=== PATIENT | male | born 1940 ===

== ENCOUNTER 2016-07-22 04:50 | Emergency (ER) | payer MEDICARE, MEDICAID ==
[2016-07-22 04:59] VITALS: PULSE 90; RESP 18; TEMP 97.9; O2SAT 97
--- NOTE | 2016-07-22 05:19 | ED PDOC ---
HPI: Abdomen Time Seen by Provider: 07/22/16 05:03 Chief Complaint (Nursing): Abdominal Pain Chief Complaint (Provider): left sided abdominal pain, flank pain, testicular pain History Per: Patient History/Exam Limitations: no limitations Onset/Duration Of Symptoms: Hrs (2) Outside of [place] travel?: No Current Symptoms Are (Timing): Still Present Pain Scale Rating Of: 10 Quality Of Discomfort: Sharp Associated Symptoms: Nausea Additional Complaint(s): 76yo male with PMHx including CAD, HTN, dyslipidemia, coronary stents presents to the ED with c/o acute onset left sided abdominal pain radiating to left flank and left testicle x 2 hours. Patient reports pain is 10/10, sharp, and constant. States he feels nauseated but denies vomiting. Pain awoke patient from sleep. Denies chest pain, cough, SOB, diarrhea, fever. Past Medical History Reviewed: Historical Data, Nursing Documentation, Vital Signs Vital Signs: Last Vital Signs Temp 97.9 F 07/22/16 04:56 Pulse 90 07/22/16 04:56 Resp 18 07/22/16 04:56 BP 173/94 H 07/22/16 04:56 Pulse Ox 97 07/22/16 06:28 - Medical History PMH: CAD, HTN Other PMH: dyslipidemia - Surgical History Surgical History: Coronary Stent - Family History Family History: States: No Known Family Hx - Social History Current smoker - smoking cessation education provided: No Alcohol: Occasional Drugs: Denies - Home Medications Home Medications: Ambulatory Orders Medication Instructions Recorded Tamsulosin [Flomax] 0.4 mg PO DAILY #10 cap 07/22/16 traMADol [Ultram] 50 mg PO Q6 PRN #12 tab 07/22/16 - Allergies Allergies/Adverse Reactions: Allergies Allergy/AdvReac Type Severity Reaction Status Date / Time No Known Allergies Allergy Verified 07/22/16 04:56 Review of Systems ROS Statement: Except As Marked, All Systems Reviewed And Found Negative Constitutional: Negative for: Fever Cardiovascular: Negative for: Chest Pain Respiratory: Negative for: Cough, Shortness of Breath Gastrointestinal: Positive for: Nausea, Abdominal Pain (left sided ). Negative for: Vomiting, Diarrhea Genitourinary Male: Positive for: Other (left testicle pain ) Musculoskeletal: Positive for: Back Pain (left flank ) Physical Exam - Reviewed Nursing Documentation Reviewed: Yes Vital Signs Reviewed: Yes - Physical Exam Appears: Positive for: Well, No Acute Distress, Uncomfortable Head Exam: Positive for: ATRAUMATIC, NORMAL INSPECTION, NORMOCEPHALIC Skin: Positive for: Normal Color, Warm, Dry Eye Exam: Positive for: Normal appearance, EOMI, PERRL ENT: Positive for: Normal ENT Inspection Neck: Positive for: Normal, Painless ROM, Supple Cardiovascular/Chest: Positive for: Regular Rate, Rhythm. Negative for: Murmur , Tachycardia Respiratory: Positive for: Normal Breath Sounds. Negative for: Wheezing, Respiratory Distress Gastrointestinal/Abdominal: Positive for: Normal Exam, Soft. Negative for: Tenderness Back: Positive for: Normal Inspection. Negative for: L CVA Tenderness, R CVA Tenderness Extremity: Positive for: Normal ROM. Negative for: Deformity, Swelling Neurologic/Psych: Positive for: Alert, Oriented. Negative for: Motor/Sensory Deficits - Laboratory Results Result Diagrams: 07/22/16 05:15 07/22/16 05:15 - ECG O2 Sat by Pulse Oximetry: 97 Pulse Ox Interpretation: Normal (RA) Medical Decision Making Medical Decision Makin: Impression: 76yo male w/ acute flank pain Plan: CT A/P Labs EKG Toradol 10mg IV, Zofran 4mg IV, IVF reassess 0622: CT A/P impression: - Mild left hydroureteronephrosis, with no causative obstructing stone identified. Findings could be due to a recently passed stone. A left sided urinary tract infection could also have this appearance. Recommend clinical correlation. - Otherwise, no evidence of significant acute process on this unenhanced exam. 0630: Patient reports resolution in symptoms and is stable for d/c. Dx: ureteral calculus, renal colic Rx: flomax, ultram Improved Patient referred to urology Scribe Attestation: Documented by Melissa Valero acting as a scribe for Nasir Martinez MD. Provider Scribe Attestation: All medical record entries made by the Scribe were at my direction and personally dictated by me. I have reviewed the chart and agree that the record accurately reflects my personal performance of the history, physical exam, medical decision making, and the department course for this patient. I have also personally directed, reviewed, and agree with the discharge instructions and disposition. Disposition - Clinical Impression Clinical Impression: Ureteral calculus, Renal colic - Patient ED Disposition Is Patient to be Admitted: No Counseled Patient/Family Regarding: Studies Performed, Diagnosis, Need For Followup, Rx Given - Disposition Referrals: Marly Caruso MD [Medical Doctor] - Disposition: Routine/Home Disposition Time: 06:30 Condition: IMPROVED Prescriptions: Tamsulosin [Flomax] 0.4 mg PO DAILY #10 cap traMADol [Ultram] 50 mg PO Q6 PRN #12 tab PRN Reason: flank/abd pain Instructions: Ureteral Stones (ED) Print Language: NORWEGIAN
[2016-07-22 05:23] LABS: BASO # 0.1 K/uL (0.0-0.2); BASO % 1.1 % (0.0-2.0); EOS # 0.3 K/uL (0.0-0.7); EOS % 4.5 % (0.0-4.0); HEMATOCRIT 44.2 % (35.0-51.0); LYMPH # 1.6 K/uL (1.0-4.3); LYMPH % 27.4 % (20.0-40.0); MEAN CELL VOLUME 90.4 fl (80.0-94.0); MEAN CORPUSCULAR HEMOGLOBIN 31.5 pg (27.0-31.0); MEAN CORPUSCULAR HGB CONC 34.8 g/dL (33.0-37.0); MEAN PLATELET VOLUME 8.3 fl (7.2-11.7); MONO # 0.3 K/uL (0.0-0.8); MONO % 5.7 % (0.0-10.0); NEUT # 3.5 K/uL (1.8-7.0); NEUT % 61.3 % (50.0-75.0); NRBC % 0.1 % (0.0-0.0); RED CELL DISTRIBUTION WIDTH 13.4 % (11.5-14.5); WHITE BLOOD COUNT 5.8 K/uL (4.8-10.8)
[2016-07-22 05:32] LABS: ALB/GLOB RATIO 1.6 (1.0-2.1); ALKALINE PHOSPHATASE 64 U/L (38-126); ALT/SGPT 35 U/L (21-72); AST/SGOT 33 U/L (17-59); BILIRUBIN,TOTAL 0.8 mg/dl (0.2-1.3); BLOOD UREA NITROGEN 22 mg/dl (9-20); CALCIUM 9.8 mg/dL (8.4-10.2); CARBON DIOXIDE 26 mmol/L (22-30); CHLORIDE 107 mmol/L (98-107); GFR AFRICAN-AMERICAN > 60; GLUCOSE,RANDOM 142 mg/dL (75-110); POTASSIUM 3.4 MMOL/L (3.6-5.0); SODIUM 145 mmol/l (132-148); TOTAL PROTEIN 7.3 G/DL (6.3-8.2)
--- NOTE | 2016-07-22 06:22 | CT ---
EXAM: CT Abdomen and Pelvis Without Intravenous Contrast CLINICAL HISTORY: 76 years old, male; Pain; Abdominal pain; Generalized; Additional info: Renal colic TECHNIQUE: Axial computed tomography images of the abdomen and pelvis without intravenous contrast. This CT exam was performed using one or more of the following dose reduction techniques: automated exposure control, adjustment of the mA and/or kV according to patient size, and/or use of iterative reconstruction technique. Coronal and sagittal reformatted images were created and reviewed. EXAM DATE/TIME: 07/22/2016 5:07 AM COMPARISON: No relevant prior studies available. FINDINGS: LOWER THORAX: No infiltrate seen in the lung bases. ABDOMEN: LIVER: 9 mm low density liver lesion, most likely a cyst. GALLBLADDER AND BILE DUCTS: Cholecystectomy clips. No evidence of significant biliary ductal dilatation. PANCREAS: No CT evidence of acute pancreatitis. SPLEEN: No acute abnormality of the spleen identified. ADRENALS: No acute abnormality of the adrenal glands identified. KIDNEYS AND URETERS: Mild left hydroureteronephrosis, as well as left perinephric stranding and fluid. Tiny, nonobstructing left renal stone. No causative obstructing stone is identified. STOMACH AND BOWEL: Colonic diverticulosis, with no evidence of acute diverticulitis. Duodenal diverticulum noted. Otherwise, no significant abnormality of the bowel is identified. No evidence of bowel obstruction. APPENDIX: Appendix is seen, and is within normal limits in appearance. PELVIS: BLADDER: No acute abnormality of the bladder identified. REPRODUCTIVE: Multiple surgical clips in the pelvis, most likely related to prior prostatectomy and lymph node dissection. ABDOMEN and PELVIS: INTRAPERITONEAL SPACE: No evidence of free intraperitoneal air or fluid. BONES/JOINTS: No acute fractures or other acute bony abnormality noted. SOFT TISSUES:No acute abnormality of the visualized soft tissues is seen. No evidence of abdominal wall hernia containing bowel. VASCULATURE: No evidence of abdominal aortic aneurysm. No evidence of periaortic hemorrhage. LYMPH NODES: See above. No evidence of diffuse pathologic lymphadenopathy. IMPRESSION: - Mild left hydroureteronephrosis, with no causative obstructing stone identified. Findings could be due to a recently passed stone. A left sided urinary tract infection could also have this appearance. Recommend clinical correlation. - Otherwise, no evidence of significant acute process on this unenhanced exam. - See above for remaining findings.
[2016-07-22 06:47] VITALS: BP 156/89
[2016-07-22 07:09] LABS: RBC URINE 23 /hpf (0-3); URINE BILIRUBIN NEGATIVE (NEGATIVE); URINE BLOOD LARGE (NEGATIVE); URINE COLOR YELLOW (YELLOW); URINE GLUCOSE (UA) NEG (Normal); URINE KETONE NEGATIVE (NEGATIVE); URINE LEUKOCYTE ESTERASE NEG Leu/uL (Negative); URINE PROTEIN NEGATIVE (NEGATIVE); URINE UROBILINOGEN 0.2-1.0 mg/dL (0.2-1.0); WBC URINE 3 /hpf (0-5)
--- NOTE | 2016-07-23 14:47 | CARD ---
APPROVED REPORT EKG Measurement Heart [id number] <Conclusion> Normal sinus rhythm Normal ECG
== END 2016-07-22 06:46 | disposition home or self-care (01) ==
LOC: H.ER 04:50
DX: N20.1 Calculus of ureter (principal); R22.0 Localized swelling, mass and lump, head; I10 Essential (primary) hypertension; I25.10 Atherosclerotic heart disease of native coronary artery without angina pectoris
CPT/HCPCS: 74176; 80053; 81003; 85025; 93005; 99282; J1885; J2405

== ENCOUNTER 2018-06-21 09:31 | Emergency (ER) | payer MEDICARE, OTHER ==
[2018-06-21 09:38] VITALS: RESP 18; TEMP 97.8; O2SAT 98; BMI 32.8
[2018-06-21] MEDS ORDERED: Sodium Chloride 0.9% 1,000 ML IV STA (10:01)
--- NOTE | 2018-06-21 10:19 | ED PDOC ---
HPI: Male Pain Time Seen by Provider: 06/21/18 09:49 Chief Complaint (Nursing): Male Genitourinary Chief Complaint (Provider): flank pain History Per: Patient History/Exam Limitations: no limitations Onset/Duration Of Symptoms: Days Current Symptoms Are (Timing): Still Present Additional Complaint(s): Pt. with left flank pain radiating down to left groin. Has had same last year and was a stone he passed after coming to the Er. Nausea, no vomit. No testicular pain, weakness, dyspnea, chest pain, diarrhea. No numbness, tingles. No leg pain. No arm pain. Hematuria, no dysuria. Past Medical History Reviewed: Nursing Documentation, Vital Signs Vital Signs: Last Vital Signs Temp 97.8 F 06/21/18 09:37 Pulse 86 06/21/18 09:37 Resp 18 06/21/18 09:37 BP 166/88 H 06/21/18 09:37 Pulse Ox 98 06/21/18 09:37 Primary Care Provider: Gee Shelby - Medical History PMH: CAD, Gastritis, HTN, Hyperlipidemia Other PMH: kidney stones - Surgical History Surgical History: CABG, Coronary Stent - Family History Family History: States: Unknown Family Hx - Living Arrangements Living Arrangements: With Family - Home Medications Home Medications: Ambulatory Orders Medication Instructions Recorded Tamsulosin [Flomax] 0.4 mg PO DAILY #10 cap 07/22/16 traMADol [Ultram] 50 mg PO Q6 PRN #12 tab 07/22/16 Ibuprofen [Motrin] 600 mg PO TID 7 Days tab 06/21/18 Tamsulosin [Flomax] 0.4 mg PO DAILY PRN #6 cap 06/21/18 - Allergies Allergies/Adverse Reactions: Allergies Allergy/AdvReac Type Severity Reaction Status Date / Time codeine Allergy ITCHING Verified 06/21/18 09:52 Sulfa (Sulfonamide Allergy SWELLING Verified 06/21/18 09:52 Antibiotics) Review of Systems ROS Statement: Except As Marked, All Systems Reviewed And Found Negative Gastrointestinal: Positive for: Nausea, Abdominal Pain Genitourinary Male: Positive for: Hematuria Musculoskeletal: Positive for: Back Pain Physical Exam - Reviewed Nursing Documentation Reviewed: Yes Vital Signs Reviewed: Yes - Physical Exam Appears: Positive for: Non-toxic, No Acute Distress Head Exam: Positive for: ATRAUMATIC, NORMAL INSPECTION, NORMOCEPHALIC Skin: Positive for: Normal Color, Warm, DRY Eye Exam: Positive for: EOMI, Normal appearance, PERRL ENT: Positive for: Normal ENT Inspection Neck: Positive for: Normal, Painless ROM Cardiovascular/Chest: Positive for: Regular Rate, Rhythm Respiratory: Positive for: CNT, Normal Breath Sounds Pulses-Dorsalis Pedis (L): 2+ Pulses-Dorsalis Pedis (R): 2+ Gastrointestinal/Abdominal: Positive for: Normal Exam, Soft, Other (no pulsatile mass; no echymosis.). Negative for: Tenderness, Guarding Back: Positive for: L CVA Tenderness. Negative for: R CVA Tenderness Extremity: Positive for: Normal ROM. Negative for: Tenderness, Pedal Edema Neurological/Psych: Positive for: Awake, Alert, Normal Tone - Laboratory Results Result Diagrams: 06/21/18 11:06 06/21/18 10:20 Interpretation Of Abn Labs: 3.4 k, 25 bun, urine rbc - ECG O2 Sat by Pulse Oximetry: 98 Pulse Ox Interpretation: Normal - CT Scan/US ct Other Rad Studies (CT/US): Read By Radiologist Other Rad Interpretation: no acute findings - Progress ED Course And Treament: 12:16: Pt. states pain better, but still present in lower back into testicle l eft. States earlier pain went down leg as well. Currently no leg pain. No incontinence. No numbness or tingles. No dysuria. Will get US and give lidocaine/valium. 1500: Dr. Mcginnis to fu on US read. Disposition - Clinical Impression Clinical Impression: Hematuria, Kidney stone - Patient ED Disposition Is Patient to be Admitted: No Counseled Patient/Family Regarding: Studies Performed, Diagnosis, Need For Followup, Rx Given - Disposition Referrals: [facility] [Outside] - 06/24/18 Disposition: Routine/Home Disposition Time: 12:18 Condition: STABLE Additional Instructions: Return if not better in 3 days. Prescriptions: Ibuprofen [Motrin] 600 mg PO TID 7 Days tab Tamsulosin [Flomax] 0.4 mg PO DAILY PRN #6 cap PRN Reason: Pain Instructions: Kidney Stones in Adults, Blood in the Urine (Hematuria) in Adults Forms: [facility] ([place]) Print Language: JAPANESE
[2018-06-21 10:30] LABS: SQUAMOUS EPITHIAL 1 /hpf (0-5); URINE BILIRUBIN NEGATIVE (NEGATIVE); URINE BLOOD LARGE (NEGATIVE); URINE CLARITY SLIGHTY-CLOUDY (Clear); URINE COLOR YELLOW (YELLOW); URINE GLUCOSE (UA) NEG (NEGATIVE); URINE LEUKOCYTE ESTERASE NEG Leu/uL (Negative); URINE PROTEIN NEGATIVE (NEGATIVE); URINE UROBILINOGEN 0.2-1.0 mg/dL (0.2-1.0)
[2018-06-21 10:34] LABS: PROTHROMBIN TIME 11.2 Seconds (9.8-13.1)
[2018-06-21 10:36] LABS: ALB/GLOB RATIO 1.6 (1.0-2.1); ALBUMIN 4.3 g/dL (3.5-5.0); ALT/SGPT 30 U/L (21-72); AST/SGOT 25 U/L (17-59); BLOOD UREA NITROGEN 25 mg/dl (9-20); CALCIUM 8.9 mg/dL (8.4-10.2); GFR NON-AFRICAN AMERICAN 59
[2018-06-21 10:37] LABS: PARTIAL THROMBOPLASTIN TIME 32.2 Seconds (25.6-37.1)
[2018-06-21 11:12] LABS: BASO % 0.9 % (0.0-2.0); EOS # 0.2 K/uL (0.0-0.7); EOS % 4.2 % (0.0-4.0); LYMPH # 0.7 K/uL (1.0-4.3); LYMPH % 15.6 % (20.0-40.0); MEAN CELL VOLUME 92.3 fl (80.0-94.0); MEAN CORPUSCULAR HEMOGLOBIN 31.6 pg (27.0-31.0); MEAN CORPUSCULAR HGB CONC 34.2 g/dL (33.0-37.0); MEAN PLATELET VOLUME 8.1 fl (7.2-11.7); MONO # 0.3 K/uL (0.0-0.8); MONO % 6.6 % (0.0-10.0); NEUT # 3.3 K/uL (1.8-7.0); NEUT % 72.7 % (50.0-75.0); NRBC % 0.3 % (0.0-0.0); RBC 4.43 Mil/uL (4.40-5.90); RED CELL DISTRIBUTION WIDTH 14.1 % (11.5-14.5); WHITE BLOOD COUNT 4.6 K/uL (4.8-10.8)
--- NOTE | 2018-06-21 11:38 | CT ---
Date of service: 06/21/2018 PROCEDURE: CT Abdomen and Pelvis without intravenous contrast HISTORY: Back pain. Calculus disease suspected. COMPARISON: 07/22/2016. TECHNIQUE: Unenhanced. Neither IV nor oral contrast administered Radiation dose: Total exam DLP = 936.59 mGy-cm. This CT exam was performed using one or more of the following dose reduction techniques: Automated exposure control, adjustment of the mA and/or kV according to patient size, and/or use of iterative reconstruction technique. FINDINGS: LOWER THORAX: Unremarkable. LIVER: Unremarkable. No gross lesion or ductal dilatation. GALLBLADDER AND BILE DUCTS: Status post cholecystectomy. No abnormality is seen in the gallbladder fossa. PANCREAS: Unremarkable. No gross lesion or ductal dilatation. SPLEEN: Unremarkable. ADRENALS: Unremarkable. No mass. KIDNEYS AND URETERS: No hydronephrosis. No solid mass. No visible calculi. Stable perinephric stranding. VASCULATURE: Atherosclerotic calcification and mural plaque present. Findings are seen throughout the aorta which is non aneurysmal. BOWEL: Diverticulosis without an acute inflammatory component or other associated pathologic process. Constipation without fecal impaction or obstruction. APPENDIX: A normal appendix is visualized in it's entirety. PERITONEUM: Unremarkable. No free fluid. No free air. LYMPH NODES: Unremarkable. No enlarged lymph nodes. BLADDER: Decompressed/low volume. No focal or diffuse bladder wall abnormalities. No renal calculi noted. REPRODUCTIVE: Postoperative findings related prior prostatectomy. BONES: No acute fracture. Multilevel degenerative changes lower thoracic and lower lumbar spine are stable. OTHER FINDINGS: None. IMPRESSION: No acute or significant findings related to/ accounting for the clinical presentation. Specifically common no evidence of suggest upper tract calculus disease, hydronephrosis, hydroureter or urinary bladder abnormality. Additional benign and/or incidental findings described above. No significant interval change compared to the prior examination(s).
[2018-06-21] MEDS ORDERED: Potassium Chloride 20 mEq ER Tab PO STA (12:20)
[2018-06-21] MEDS ORDERED: Lidocaine 5% Patch TD STA (12:27)
[2018-06-21] MEDS ORDERED: Potassium Chloride 20 mEq ER Tab PO ONE (12:32)
[2018-06-21] MEDS ORDERED: Lidocaine 5% Patch TD ONE (12:33)
--- NOTE | 2018-06-21 13:32 | CARD ---
APPROVED REPORT Date of service: 06/21/2018 EKG Measurement Heart [id number] ID [id number] <Conclusion> Normal sinus rhythm Normal ECG
--- NOTE | 2018-06-21 15:16 | US ---
Date of service: 06/21/2018 HISTORY: testicular pain TECHNIQUE: Realtime sonography through the scrotum with color and doppler flow. COMPARISON: None Available. FINDINGS: RIGHT TESTICLE: Measures 3.6 x 2.6 x 2.0 cm. Normal echotexture and flow. RIGHT EPIDIDYMIS: Epididymal head measures 0.6 x 0.7 x 1.3 cm. Normal color Doppler blood flow is appreciated with a small epididymal cyst seen in the head measuring 0.3 cm greatest dimension. LEFT TESTICLE: Measures 3.7 x 2.7 x 2.1 cm. Normal echotexture and flow. LEFT EPIDIDYMIS: Epididymal head measures 0.8 x 1.5 x 1.1 cm. The left epididymal head is mildly enlarged with the speckled pattern due to multiple cystic interfaces most compatible with tubular ectasia. Consider possible prior vasectomy or other cause of ductus deferens obstruction. There is a nonspecific thick wall cyst posterior to the body epididymis measuring 0.9 x 0.7 x 0.7 cm avascular on color per ultrasound of uncertain origin. HYDROCELE: Mild right and moderate left hydroceles are identified. VARICOCELE: Borderline left varicocele. None is seen at the right. OTHER FINDINGS: None. IMPRESSION: 1. Tubular ectasia of the left epididymis is identified with a 0.9 cm cyst of uncertain origin posterior to the body of the epididymis. Consider cause of possible ductus deferens obstruction including vasectomy. Further clinical correlation advised. 2. Small right epididymal head cyst. No evidence of testicular torsion or mass bilaterally. 3. Mild right and moderate left hydroceles. Findings discussed with Dr. Mcginnis with written down and read back verification 06/21/2018 3:10 p.m..
--- NOTE | 2018-06-21 16:00 | ED PDOC ---
- Laboratory Results Result Diagrams: 06/21/18 11:06 06/21/18 10:20 Lab Results: PT 11.2 Seconds (9.8-13.1) 06/21/18 10:20 INR 1.0 06/21/18 10:20 APTT 32.2 Seconds (25.6-37.1) 06/21/18 10:20 Troponin I < 0.0120 ng/mL (0.00-0.120) 06/21/18 10:20 Total Bilirubin 0.7 mg/dl (0.2-1.3) 06/21/18 10:20 AST 25 U/L (17-59) 06/21/18 10:20 ALT 30 U/L (21-72) 06/21/18 10:20 Alkaline Phosphatase 56 U/L (38-126) 06/21/18 10:20 Total Protein 6.9 G/DL (6.3-8.2) 06/21/18 10: Albumin 4.3 g/dL (3.5-5.0) 06/21/18 10:20 Globulin 2.6 gm/dL (2.2-3.9) 06/21/18 10:20 Albumin/Globulin Ratio 1.6 (1.0-2.1) 06/21/18 10:20 Urine Color Yellow (YELLOW) 06/21/18 10:18 Urine Clarity Slighty-cloudy (Clear) 06/21/18 10:18 Urine pH 5.0 (5.0-8.0) 06/21/18 10:18 Ur Specific Thornton 1.023 (1.003-1.030) 06/21/18 10:18 Urine Protein Negative mg/dL (NEGATIVE) 06/21/18 10:18 Urine Glucose (UA) Neg mg/dL (NEGATIVE) 06/21/18 10:18 Urine Ketones Negative mg/dL (NEGATIVE) 06/21/18 10:18 Urine Blood Large (NEGATIVE) 06/21/18 10:18 Urine Nitrate Negative (NEGATIVE) 06/21/18 10:18 Urine Bilirubin Negative (NEGATIVE) 06/21/18 10:18 Urine Urobilinogen 0.2-1.0 mg/dL (0.2-1.0) 06/21/18 10:18 Ur Leukocyte Esterase Neg Marly/uL (Negative) 06/21/18 10:18 Urine RBC (Auto) 110 /hpf (0-3) H 06/21/18 10:18 Urine Microscopic WBC 2 /hpf (0-5) 06/21/18 10:18 Ur Squamous Epith Cells 1 /hpf (0-5) 06/21/18 10:18 - ECG O2 Sat by Pulse Oximetry: 98 Medical Decision Making Medical Decision Making: Accession No. : [id number] Patient Name / ID : NAHID BANUELOS / [id number] Exam Date : 06/21/2018 13:56:48 ( Approved ) Study Comment : Sex / Age : M / 78Y Creator : Marshall Little MD Dictator : Marshall Little MD Knife Operator : Chief Science Officer : Marshall Little MD Approver2 : Report Date : 06/21/2018 15:13:05 My Comment : Date of service: 06/21/2018 HISTORY: testicular pain TECHNIQUE: Realtime sonography through the scrotum with color and doppler flow. COMPARISON: None Available. FINDINGS: RIGHT TESTICLE: Measures 3.6 x 2.6 x 2.0 cm. Normal echotexture and flow. RIGHT EPIDIDYMIS: Epididymal head measures 0.6 x 0.7 x 1.3 cm. Normal color Doppler blood flow is appreciated with a small epididymal cyst seen in the head measuring 0.3 cm greatest dimension. LEFT TESTICLE: Measures 3.7 x 2.7 x 2.1 cm. Normal echotexture and flow. LEFT EPIDIDYMIS: Epididymal head measures 0.8 x 1.5 x 1.1 cm. The left epididymal head is mildly enlarged with the speckled pattern due to multiple cystic interfaces most compatible with tubular ectasia. Consider possible prior vasectomy or other cause of ductus deferens obstruction. There is a nonspecific thick wall cyst posterior to the body epididymis measuring 0.9 x 0.7 x 0.7 cm avascular on color per ultrasound of uncertain or igin. HYDROCELE: Mild right and moderate left hydroceles are identified. VARICOCELE: Borderline left varicocele. None is seen at the right. OTHER FINDINGS: None. IMPRESSION: 1. Tubular ectasia of the left epididymis is identified with a 0.9 cm cyst of uncertain origin posterior to the body of the epididymis. Consider cause of possible ductus deferens obstruction including vasectomy. Further clinical correlation advised. 2. Small right epididymal head cyst. No evidence of testicular torsion or mass bilaterally. 3. Mild right and moderate left hydroceles. Disposition - Clinical Impression Clinical Impression: Microscopic hematuria, Back pain - POA Present On Arrival: None - Disposition Referrals: Gee Shelby MD [Medical Doctor] - Disposition: Routine/Home Disposition Time: 17:17 Condition: STABLE Prescriptions: Ibuprofen [Motrin] 600 mg PO Q6H PRN #20 tab PRN Reason: Pain, Moderate (4-7) traMADol [Ultram] 50 mg PO BID PRN #4 tab PRN Reason: Pain, Severe (8-10) Instructions: Blood in the Urine (Hematuria) in Adults, Low Back Pain (DC), Opioids for Short-Term Treatment of Pain Forms: [employer] (Sammarinese) Print Language: KAZAKH Addendum Addendum: 06/21/18 15:00 Pt signed out [address] Arriaga pending testicular ultrasound.
[2018-06-21 17:55] VITALS: BP 141/72; PULSE 82
== END 2018-06-21 17:53 | disposition home or self-care (01) ==
LOC: H.ER 09:31
DX: R31.9 Hematuria, unspecified (principal); N20.0 Calculus of kidney; I10 Essential (primary) hypertension; Z87.442 Personal history of urinary calculi; Z95.1 Presence of aortocoronary bypass graft; Z95.5 Presence of coronary angioplasty implant and graft; I25.10 Atherosclerotic heart disease of native coronary artery without angina pectoris; Z88.2 Allergy status to sulfonamides; E78.5 Hyperlipidemia, unspecified
CPT/HCPCS: 74176; 80053; 81003; 84484; 85025; 85610; 85730; 93005; 93975; 96374; 99284; J1885; J2405; J7030